=== PATIENT | female | born 1985 | race Caucasian/White ===

== ENCOUNTER 2017-07-27 12:58 | Day surgery (SDC) | payer MEDICAID ==
[~2017-07-27] VITALS: Ht 167.6 cm; Wt 96.2 kg
[~2017-07-27 12:58] MED LIST: DCS100C PO; FERR-57 PO; FLX20C; IBP800T PO; PREN1TAB4 PO; percocet
--- OUTSIDE RECORDS SUMMARY | 2017-07-27 13:01 | XMS REPORT | Continuity of Care Document ---
Author Author Formerly [facility], 1928–1983 Ctr of [facility] Ctr [facility] Address Unknown Phone Unavailable Allergies Medications Problems Date Dx Coded Attending Type Code Diagnosis Diagnosed By 10/21/2009 DALE SEGOVIA DO 643.90 UNSPECIFIED VOMITING OF , UNSPECIFIED TO EPISODE OF CARE OR NOT APPLICABLE 10/21/2009 DALE SEGOVIA DO 654.20 PREVIOUS DELIVERY, UNSPECIFIED TO EPISODE OF CARE OR NOT APPLICABLE 10/21/2009 DALE SEGOVIA DO V23.89 SUPERVISION OF OTHER HIGH-RISK 10/21/2009 643.90 UNSPECIFIED VOMITING OF , UNSPECIFIED TO EPISODE OF CARE OR NOT APPLICABLE 10/21/2009 654.20 PREVIOUS DELIVERY, UNSPECIFIED TO EPISODE OF CARE OR NOT APPLICABLE 10/21/2009 V23.89 SUPERVISION OF OTHER HIGH-RISK 01/06/2010 DALE SEGOVIA DO V22.1 SUPERVISION OF OTHER NORMAL 01/06/2010 V22.1 SUPERVISION OF OTHER NORMAL 01/10/2010 DALE SEGOVIA DO 462 PHARYNGITIS ACUTE 01/10/2010 462 PHARYNGITIS ACUTE 10/14/2010 DALE SEGOIVA DO 729.5 foot pain (soft tissue) 10/14/2010 729.5 foot pain (soft tissue) 11/02/2010 DALE SEGOVIA DO 296.90 MOOD DISORDER 11/02/2010 DALE SEGOVIA DO 626.4 IRREGULAR MENSTRUAL CYCLE 11/02/2010 DALE SEGOVIA DO 799.22 IRRITIBILITY 11/02/2010 DALE SEGOVIA DO V25.09 CONTRACEPTIVE COUNSELING 11/02/2010 DALE SEGOVIA DO V25.49 SURVEILLANCE OF OTHER CONTRACEPTIVE METHOD 11/02/2010 DALE SEGOVIA DO V72.31 HEAT CURER EXAM, ROUTINE 11/02/2010 DALE SEGOVIA DO V74.5 STD SCREEN 11/02/2010 296.90 MOOD DISORDER 11/02/2010 626.4 IRREGULAR MENSTRUAL CYCLE 11/02/2010 799.22 IRRITIBILITY 11/02/2010 V25.09 CONTRACEPTIVE COUNSELING 11/02/2010 V25.49 SURVEILLANCE OF OTHER CONTRACEPTIVE METHOD 11/02/2010 V72.31 HEAT CURER EXAM, ROUTINE 11/02/2010 V74.5 STD SCREEN Procedures Results Encounters ACCT No. Visit Date/Time Discharge Status Pt. Type Provider Facility Loc./Unit Complaint [id number] 02/28/2012 16:24:00 02/28/2012 23: 59:59 [place] [id number] 02/28/2012 16:24:00 02/28/2012 23: 59:59 CLS Outpatient
[2017-07-27] MEDS ORDERED: D5 LR IV SOLUTION 1,000 ML IV SCH (13:08)
[2017-07-27] MEDS ORDERED: CIPR-225 PO (13:12)
[2017-07-27] MEDS ORDERED: OXYC-202 PO (13:12)
[2017-07-27] MEDS ORDERED: METR500T PO (13:12)
--- NOTE | 2017-07-27 13:13 | Discharge Instructions ---
Discharge Instructions Discharge Medications New, Converted or Re-Newed RX: RX on Chart Patient Instructions Patient Instructions: aas directed Return to The Hospital For: as directed Activity & Diet Discharge Diet: No Restrictions Activity as Tolerated: No Orders-Post D/C & Referrals Follow Up Appt: Call to make follow up appt. for patient in 2 weeks. Activity: Rest for 24 hours, than as tolerated. Please call in RX to patient pharmacy. Diet: As tolerated-Clear Liquids only if nauseated. May shower or tub bathe as desired. No driving for 24 hours, no alcoholic beverages for 24 hours, and nothing per vagina (no tampons, douching, or intercourse) for 2 weeks. Patient to return to the clinic as soon as possible for: Temperature greater than 101F, Severe Pain, Foul discharge from incision or vagina, Excessive Bleeding (more than a period). ELMA MENA MD Jul 27, 2017 1:13 pm
[2017-07-27] MEDS ORDERED: MEPERIDINE (DEMEROL) INJ 100 MG/ML IM ONE (13:15)
[2017-07-27] MEDS ORDERED: ONDANSETRON 4 MG/2 ML (SDV) Z0FRAN IVP PRN ×2 (13:15→17:30)
[2017-07-27] MEDS ORDERED: KETOROLAC 30 MG/ML VIAL IVP ONE (13:15)
[2017-07-27] MEDS ORDERED: PROMETHAZINE INJ 25 MG/ML (PHENERGAN) AMP IM ONE (13:15)
[2017-07-27] MEDS ORDERED: SCOPOLAMINE 1.5 MG (TRANSDERM-SCOP) PATCH ONE (13:51)
[2017-07-27] MEDS ORDERED: FAMOTIDINE 20MG/2ML IV (PEPCID) ONE (13:51)
[2017-07-27] MEDS ORDERED: SCOPOLAMINE 1.5 MG (TRANSDERM-SCOP) PATCH TOP ONE (14:00)
[2017-07-27] MEDS ORDERED: metroNIDAZOLE 500MG/100ML IVPB 100 ML IV ONE (14:00)
[2017-07-27] MEDS ORDERED: ONDANSETRON 4 MG/2 ML (SDV) Z0FRAN IV ONE (14:00)
[2017-07-27] MEDS ORDERED: FAMOTIDINE 20MG/2ML IV (PEPCID) IV ONE (14:00)
[2017-07-27] MEDS ORDERED: LEVOFLOXACIN 500 MG/100 ML IV 100 ML IV ONE (14:00)
[2017-07-27] MEDS: LACTATED RINGERS 1,000 ML IV PRN ×2 (14:00→18:19)
[2017-07-27] MEDS ORDERED: MIDAZOLAM 2 MG/2 ML (VERSED) VIAL ONE (14:24)
[2017-07-27] MEDS ORDERED: SEVOFLURANE (ULTANE) 15 ML INHAL SOLN ONE (14:24)
[2017-07-27] MEDS ORDERED: proPOfol 200 MG/20 ML (DIPRIVAN) VIAL IV ONE (14:24)
[2017-07-27] MEDS ORDERED: DEXAMETHASONE 10 MG/ML (DECADRON) 1 ML VIAL ONE (14:24)
[2017-07-27] MEDS ORDERED: LIDOCAINE PF 2% 5 ML (XYLOCAINE) VIAL ONE (14:24)
[2017-07-27] MEDS ORDERED: fentaNYL INJECTION 100 MCG/2 ML AMP ONE (14:24)
[2017-07-27 14:25] LABS: BASOPHILS % (AUTO) 0 % (0-10); EOSINOPHILS # (AUTO) 0.3 10^3/uL (0.0-0.3); EOSINOPHILS % (AUTO) 4 % (0-10); LYMPHOCYTES # (AUTO) 2.8 X 10^3 (1.0-4.0); LYMPHOCYTES % (AUTO) 29 % (12-44); MEAN CORPUSCULAR HEMOGLOBIN 31 PG (25-34); MEAN CORPUSCULAR HGB CONC 34 G/DL (32-36); MEAN CORPUSCULAR VOLUME 92 FL (80-99); MEAN PLATELET VOLUME 9.6 FL (7.4-10.4); MONOCYTES # (AUTO) 0.7 X 10^3 (0.0-1.0); MONOCYTES % (AUTO) 7 % (0-12); NEUTROPHILS # (AUTO) 5.7 X 10^3 (1.8-7.8); NEUTROPHILS % (AUTO) 60 % (42-75); PLATELET COUNT 318 10^3/uL (130-400); RED BLOOD COUNT 3.97 10^6/uL (4.35-5.85); RED CELL DISTRIBUTION WIDTH 14.3 % (10.0-14.5); WHITE BLOOD COUNT 9.4 10^3/uL (4.3-11.0)
[2017-07-27 14:46] VITALS: BP 90/61
[2017-07-27] MEDS ORDERED: MEPERIDINE (DEMEROL) INJ 50 MG/ML IVP PRN (17:30)
[2017-07-27] MEDS ORDERED: KETOROLAC 30 MG/ML VIAL ONE (17:54)
[2017-07-27] MEDS: morphine INJ 10 MG/ML 1ML (SYR OR VIAL) IVP PRN ×2 (18:13→18:29)
[2017-07-27] MEDS ORDERED: LACTATED RINGERS 1,000 ML IV ONE (18:17)
[2017-07-27 19:30] VITALS: BP 102/63
[2017-07-27 21:00] VITALS: BP 99/60
[2017-07-27] MEDS: oxyCODONE/APAP 10/325MG (PERCOCET 10) TABLET PO PRN (21:26)
[2017-07-28] MEDS ORDERED: IBUPROFEN 600 MG (MOTRIN) TAB PO SCH
[2017-07-28] MEDS ORDERED: IBUPROFEN 800 MG (MOTRIN) TAB PO ONE (00:03)
[2017-07-28] MEDS: IBUPROFEN 800 MG (MOTRIN) TAB PO SCH ×3 (00:15→13:14)
[2017-07-28 00:16] VITALS: BP 94/58
--- NOTE | 2017-07-28 00:44 | OPERATIVE REPORT ---
DATE OF SERVICE: 07/27/2017 PREOPERATIVE DIAGNOSIS: Missed /intrauterine demise. POSTOPERATIVE DIAGNOSIS: Missed /intrauterine demise. OPERATIVE PROCEDURE: D and C. OPERATIVE DESCRIPTION: With the patient in the supine position, under satisfactory general anesthesia, she was repositioned in dorsal lithotomy position in candycane stirrups and prepped and draped in the usual fashion for vaginal surgery. The urinary bladder was emptied with a straight catheter. A weighted speculum placed in the posterior fornix of the vagina. Cervix was exposed and grasped anteriorly with single tooth tenaculum. The uterus was sounded to 14 cm with uterine sound. The cervix was then serially dilated with Jason dilators to a #20 Jason and then a #19 Hegar dilator, was the final step in dilation. A culture from the endometrial cavity was obtained for aerobes and anaerobes and sent to the lab labeled appropriately. A #10 curved sucking curet was then introduced and endometrial cavity curettaged with removal of large amount of trophoblastic and decidual appearing tissue, blood, clot, amniotic fluid and debris. The endometrial cavity was sharply curettaged in all 4 quadrants to good uterine cry. Then, the suction curet was reintroduced and all blood, clot and debris evacuated from the uterus. The curet was removed as was the tenaculum. There was some bleeding from the puncture sites that was controlled with application of silver nitrate stick. On completion of the procedure, estimated blood loss was 400 mL. Sponge and needle counts were correct. The patient was uneventfully awakened from her general anesthesia and transferred to recovery room in stable condition with plans for discharge home PAR. Job ID: [id number] DocumentID: [id number] Dictated Date: 07/27/2017 17:51:43 Body Technician/Painter Date: 07/28/2017 00:43:44 Dictated By: ELMA MENA MD
[2017-07-28 04:30] VITALS: BP 97/67
[2017-07-28] MEDS: oxyCODONE/APAP 10/325MG (PERCOCET 10) TABLET PO PRN ×2 (06:24→13:14)
--- NOTE | 2017-07-28 07:07 | Progress Note-Standard ---
Standard Progress Note Progress Notes/Assess & Plan Date Seen by Provider: Jul 28, 2017 Time Seen by Provider: 07:05 Progress/Assessment & Plan patient this morning is without complaint except some mild cramping and some spotting. She is ambulating voiding and tolerating by mouth. Vital Signs Date Time Temp Pulse Resp B/P (MAP) Pulse Ox O2 Delivery O2 Flow Rate FiO2 07/28/17 04:30 97.6 73 18 97/67 (77) 99 Room Air 07/28/17 00:16 96.4 65 18 94/58 (70) 95 Room Air 07/27/17 21:00 96.6 88 18 99/60 (73) 98 Room Air 07/27/17 19:30 97.1 85 16 102/63 (76) 97 Room Air 07/27/17 14:46 98.9 84 16 90/61 (71) 96 Room Air I & O 07/28/17 07:00 Intake Total 1200 ml Output Total 400 ml Balance 800 ml Laboratory Tests Test 07/27/17 13:40 Range/Units White Blood Count 9.4 4.3-11.0 10^3/uL Red Blood Count 3.97 L 4.35-5.85 10^6/uL Hemoglobin 12.3 11.5-16.0 G/DL Hematocrit 36 35-52 % Mean Corpuscular Volume 92 80-99 FL Mean Corpuscular Hemoglobin 31 25-34 PG Mean Corpuscular Hemoglobin Concent 34 32-36 G/DL Red Cell Distribution Width 14.3 10.0-14.5 % Platelet Count 318 130-400 10^3/uL Mean Platelet Volume 9.6 7.4-10.4 FL Neutrophils (%) (Auto) 60 42-75 % Lymphocytes (%) (Auto) 29 12-44 % Monocytes (%) (Auto) 7 0-12 % Eosinophils (%) (Auto) 4 0-10 % Basophils (%) (Auto) 0 0-10 % Neutrophils # (Auto) 5.7 1.8-7.8 X 10^3 Lymphocytes # (Auto) 2.8 1.0-4.0 X 10^3 Monocytes # (Auto) 0.7 0.0-1.0 X 10^3 Eosinophils # (Auto) 0.3 0.0-0.3 10^3/uL Basophils # (Auto) 0.0 0.0-0.1 10^3/uL Signs are stable. Patient is afebrile. Hemoglobin and white blood cell count normal. The abdomen is benign. Bowel sounds are present. Surgeon show no clubbing cyanosis. There is no Homans sign. Assessment and plan postoperative day number 1 status post D&C for IUFD. Patient doing well be discharged home with follow-up in clinic Final Diagnosis IUFD ELMA MENA MD Jul 28, 2017 7:07 am
[2017-07-28 08:00] VITALS: BP 97/53
--- NOTE | 2017-07-28 13:20 | Anesthesia-General Post-Op ---
General Patient Condition Mental Status/LOC: Same as Preop Cardiovascular: Satisfactory Nausea/Vomiting: Absent Respiratory: Satisfactory Pain: Controlled Complications: Absent Post Op Complications Complications None Follow Up Care/Instructions Patient Instructions None needed. Anesthesia/Patient Condition Patient Condition Patient is doing well, no complaints, stable vital signs, no apparent adverse anesthesia problems. ALLIE PALACIOS DO Jul 28, 2017 13:20
[2017-07-28 14:57] VITALS: BP 97/53
[2017-07-30] MEDS ORDERED: PATCH REMOVAL TP SCH (13:59)
== END 2017-07-28 14:50 | disposition home or self-care (01) ==
LOC: SDC 12:58 → LDRP 19:00 → SDC 07-28 14:50
PROVIDERS: ATTEND Obstetrics & Gynecology
DX: O02.1 Missed abortion (principal); F17.210 Nicotine dependence, cigarettes, uncomplicated; E66.9 Obesity, unspecified; Z68.34 Body mass index [BMI] 34.0-34.9, adult
CPT/HCPCS: 36415; 85025; 86850; 86900; 86901; 87070; 87075; 87081; 87101; 87116; 87205

== ENCOUNTER 2017-08-05 00:18 | Emergency (ER) | payer MEDICAID ==
[~2017-08-05] VITALS: Ht 170.2 cm; Wt 96.2 kg
[~2017-08-05 00:18] MED LIST changes: +CIPR-225 PO; +METR500T PO; +OXYC-202 PO
--- OUTSIDE RECORDS SUMMARY | 2017-08-05 00:24 | XMS REPORT | Continuity of Care Document ---
Author Author [facility] Ctr of [facility] Ctr of [facility] Address Unknown Phone Unavailable Allergies There is no data. Medications There is no data. Problems Date Dx Coded Attending Type Code [...] ACUTE 01/10/2010 462 PHARYNGITIS ACUTE 10/14/2010 DALE SEGOVIA DO 729.5 foot pain (soft tissue) 10/14/2010 729.5 foot pain ( soft tissue) 11/02/2010 DALE SEGOVIA DO 296.90 MOOD DISORDER 11/02/2010 DALE SEGOVIA DO 626.4 IRREGULAR MENSTRUAL CYCLE 11/02/2010 DALE SEGOVIA DO 799.22 IRRITIBILITY 11/02/2010 DALE SEGOVIA DO V25.09 CONTRACEPTIVE COUNSELING 11/02/2010 DALE SEGOVIA DO V25.49 SURVEILLANCE OF OTHER CONTRACEPTIVE METHOD 11/02/2010 DALE SEGOVIA DO V72.31 BILLET SHEARER EXAM, ROUTINE 11/02/2010 DALE SEGOVIA DO V74.5 STD SCREEN 11/02/2010 296.90 MOOD DISORDER 11/02/2010 626.4 IRREGULAR MENSTRUAL CYCLE 11/02/2010 799.22 IRRITIBILITY 11/02/2010 V25.09 CONTRACEPTIVE COUNSELING 11/02/2010 V25.49 SURVEILLANCE OF OTHER CONTRACEPTIVE METHOD 11/02/2010 V72.31 BILLET SHEARER EXAM, ROUTINE 11/02/2010 V74.5 STD SCREEN Procedures There is no data. Results There is no data. Encounters ACCT No. Visit Date/Time Discharge Status Pt. Type Provider Facility Loc./Unit Complaint [id number] 02/28/2012 16:24:00 02/28/2012 23:59:59 [place] [id number] 02/28/2012 16:24:00 02/28/2012 23:59:59 CLS Outpatient
[2017-08-05] MEDS ORDERED: NS IV 1000 ML 1,000 ML IV ONE (01:04)
[2017-08-05 01:11] LABS: BASOPHILS % (AUTO) 0 % (0-10); EOSINOPHILS # (AUTO) 0.4 10^3/uL (0.0-0.3); EOSINOPHILS % (AUTO) 4 % (0-10); LYMPHOCYTES % (AUTO) 27 % (12-44); MEAN CORPUSCULAR HEMOGLOBIN 31 PG (25-34); MEAN CORPUSCULAR HGB CONC 34 G/DL (32-36); MEAN CORPUSCULAR VOLUME 93 FL (80-99); MEAN PLATELET VOLUME 9.2 FL (7.4-10.4); MONOCYTES # (AUTO) 0.9 X 10^3 (0.0-1.0); MONOCYTES % (AUTO) 8 % (0-12); NEUTROPHILS # (AUTO) 6.8 X 10^3 (1.8-7.8); NEUTROPHILS % (AUTO) 61 % (42-75); PLATELET COUNT 446 10^3/uL (130-400); RED BLOOD COUNT 3.55 10^6/uL (4.35-5.85); RED CELL DISTRIBUTION WIDTH 14.4 % (10.0-14.5); WHITE BLOOD COUNT 11.2 10^3/uL (4.3-11.0)
[2017-08-05 01:23] LABS: INR 0.9 (0.8-1.4); PROTHROMBIN TIME PATIENT 12.3 SEC (12.2-14.7)
[2017-08-05 01:26] LABS: ALANINE AMINOTRANSFERASE 70 U/L (0-55); ALBUMIN 4.3 GM/DL (3.2-4.5); ANION GAP 12 MMOL/L (5-14); ASPARTATE AMINO TRANSFERASE 33 U/L (5-34); BILIRUBIN,TOTAL 0.7 MG/DL (0.1-1.0); BLOOD UREA NITROGEN 23 MG/DL (7-18); BUN/CREATININE RATIO 32; CALCIUM 9.5 MG/DL (8.5-10.1); CARBON DIOXIDE 21 MMOL/L (21-32); CHLORIDE 106 MMOL/L (98-107); CREATININE SERUM 0.72 MG/DL (0.60-1.30); GFR ESTIMATED > 60; GLUCOSE 92 MG/DL (70-105); SODIUM 139 MMOL/L (135-145)
--- NOTE | 2017-08-05 02:13 | ED GU-Female ---
General Chief Complaint: -Female Stated Complaint: 9 DAYS POST D AND C BLEEDING FEVER Nursing Triage Note: pt reports she had d&c by dr ramey last Sunday07/27/[address] ramey for infection with miscarriage. reports spotting since that time. cramping et fever worsening since Sunday. persistent worsening vag bleeding. Nursing Sepsis Screen: Possible Sepsis Risk Source: patient History of Present Illness Time seen by provider: 01:04 Initial Comments PT STATES SHE HAD A D&C ON 07/27 FOR MISCARRIAGE--DR. RAMEY LMP 06/19/17 PT IS AB1 PT HAS HAD FEVER OF 99-100 SINCE DISMISSED FROM HOSPITAL ON 07/28/17 HAS BEEN ON CIPRO AND FLAGYL FOR POSSIBLE INFECTION PT CONTINUES TO HAVE FEVER, AND ALSO BAD ODOR PT HAD NORMAL AMOUNT OF BLEEDING UNTIL 3 DAYS AGO, SINCE THEN HAS HAD MUCH INCREASE IN PAIN AND BLEEDING HAVING SEVERE CRAMPING AND LOWER ABDOMINAL PRESSURE, AND BLEEDING WITH CLOTS HAS BEEN SEVERE --HAS BEEN USING CHILD'S DIAPERS INSTEAD OF PADS, DUE TO THE AMOUNT OF BLEEDING--HAS USED APPROXIMATELY 10 DIAPERS TODAY TOOK A PAIN PILL JUST PRIOR TO ARRIVAL AND PAIN IS MUCH BETTER, HAS NOT TAKEN ANYTHING ELSE FOR PAIN TODAY Allergies and Home Medications Allergies Coded Allergies: No Known Drug Allergies (Verified , 07/01/08) Home Medications Ciprofloxacin HCl 500 Mg Tablet, 500 MG PO BID, #14 Prescribed by: ELMA DEE on 07/27/17 1312 Metronidazole 500 Mg Tablet, 500 MG PO BID, #14 Prescribed by: ELMA DEE on 07/27/17 1312 Oxycodone HCl/Acetaminophen 1 Each Tablet, 1-2 TAB PO Q4H PRN for PAIN, #60 Ref 0 Prescribed by: ELMA DEE on 07/27/17 1312 Constitutional: see HPI, fever Respiratory: no symptoms reported Cardiovascular: no symptoms reported Gastrointestinal: see HPI, abdominal pain, No nausea, No vomiting Genitourinary: see HPI LMP: Jun 19, 2017 Musculoskeletal: no symptoms reported Skin: no symptoms reported Psychiatric/Neurological: No Symptoms Reported Endocrine: No Symptoms Reported Hematologic/Lymphatic: See HPI Past Xtwiwry-Wmgvbo-Ijermi Hx Patient Social History Alcohol Use: Occasionally Uses Recreational Drug Use: Yes (HAS BEEN THROUGH [place] FOR METH) Drug of Choice: METH Smoking Status: Current Everyday Smoker (1 PPD) Type Used: Cigarettes Recent Foreign Travel: No Contact w/Someone Who Travel: No Recent Infectious Disease Expo: No Recent Hopitalizations: Yes (D&C 07/27/17) Surgeries History of Surgeries: Yes (D&C 07/27/17; X 2; LEEP) Surgeries: Adenoidectomy, Section, Gallbladder, Tonsillectomy Respiratory History of Respiratory Disorde: No Cardiovascular History of Cardiac Disorders: No Neurological History of Neurological Disord: No Reproductive System : No Hx : 5 Hx Para: 4 Hx Reproductive Disorders: Yes (CERVICAL DYSPLASIA--S/P LEEP) Sexually Transmitted Disease: No HIV/AIDS: No Female Reproductive Disorders: Denies Genitourinary History of Genitourinary Disor: No Gastrointestinal History of Gastrointestinal Di: No Musculoskeletal History of Musculoskeletal Dis: No Endocrine History of Endocrine Disorders: No HEENT History of HEENT Disorders: No Cancer History of Cancer: No Psychosocial History of Psychiatric Problem: Yes Behavioral Health Disorders: Anxiety Integumentary History of Skin or Integumenta: No Blood Transfusions History of Blood Disorders: No Physical Exam Vital Signs Vital Sign - Last 12Hours 08/05/17 00:45 Temp 97.2 Pulse 109 Resp 18 B/P (MAP) 108/73 (85) Capillary Refill : Less Than 3 Seconds General Appearance: WD/WN, no apparent distress, other (CONSTANT MOVEMENTS, TEARFUL AT TIMES.) Neck: normal inspection Cardiovascular: regular rate, rhythm, no murmur Respiratory: normal breath sounds, no respiratory distress, no accessory muscle use Gastrointestinal: normal bowel sounds, soft, no organomegaly, no pulsatile mass , tenderness (DIFFUSE LOWER ABDOMINAL TENDERNESS) Back: no CVA tenderness Extremities: normal inspection Neurologic/Psychiatric: driver education instructor II-XII nml as tested, no motor/sensory deficits, alert, oriented x 3 Skin: normal color, warm/dry, other (MULTIPLE SORES/SCABS/SCARS TO FACE) Focused Exam Evaluation Lactate Level Laboratory Tests 08/05/17 01:10: Lactic Acid Level 0.56 Lactic Acid Level Laboratory Tests Test 08/05/17 01:10 Lactic Acid Level 0.56 MMOL/L (0.50-2.00) Progress/Results/Core Measures Suspected Sepsis Recent Fever Within 48 Hours: Yes Infection Criteria Present: Suspected New Infection New/Unexplained Altered Menta: No Sepsis Screen: Possible Sepsis Risk Sepsis Diagnosis: SIRS Temperature:97.2 Pulse: 109 Respiratory Rate: 18 Laboratory Tests 08/05/17 01:02: White Blood Count 11.2H Blood Pressure 108 /73 Mean: 85 Laboratory Tests 08/05/17 01:10: Lactic Acid Level 0.56 Laboratory Tests 08/05/17 01:02: Creatinine 0.72, INR Comment 0.9, Platelet Count 446H, Total Bilirubin 0.7 Results/Orders Lab Results Laboratory Tests Test 08/05/17 01:02 08/05/17 01:10 Range/Units White Blood Count 11.2 H 4.3-11.0 10^3/uL Red Blood Count 3.55 L 4.35-5.85 10^6/uL Hemoglobin 11.1 L 11.5-16.0 G/DL Hematocrit 33 L 35-52 % Mean Corpuscular Volume 93 80-99 FL Mean Corpuscular Hemoglobin 31 25-34 PG Mean Corpuscular Hemoglobin Concent 34 32-36 G/DL Red Cell Distribution Width 14.4 10.0-14.5 % Platelet Count 446 H 130-400 10^3/uL Mean Platelet Volume 9.2 7.4-10.4 FL Neutrophils (%) (Auto) 61 42-75 % Lymphocytes (%) (Auto) 27 12-44 % Monocytes (%) (Auto) 8 0-12 % Eosinophils (%) (Auto) 4 0-10 % Basophils (%) (Auto) 0 0-10 % Neutrophils # (Auto) 6.8 1.8-7.8 X 10^3 Lymphocytes # (Auto) 3.0 1.0-4.0 X 10^3 Monocytes # (Auto) 0.9 0.0-1.0 X 10^3 Eosinophils # (Auto) 0.4 H 0.0-0.3 10^3/uL Basophils # (Auto) 0.0 0.0-0.1 10^3/uL Prothrombin Time 12.3 12.2-14.7 SEC INR Comment 0.9 0.8-1.4 Activated Partial Thromboplast Time 20 L 24-35 SEC Sodium Level 139 135-145 MMOL/L Potassium Level 4.0 3.6-5.0 MMOL/L Chloride Level 106 98-107 MMOL/L Carbon Dioxide Level 21 21-32 MMOL/L Anion Gap 12 5-14 MMOL/L Blood Urea Nitrogen 23 H 7-18 MG/DL Creatinine 0.72 0.60-1.30 MG/DL Estimat Glomerular Filtration Rate > 60 BUN/Creatinine Ratio 32 Glucose Level 92 70-105 MG/DL Calcium Level 9.5 8.5-10.1 MG/DL Total Bilirubin 0.7 0.1-1.0 MG/DL Aspartate Amino Transf (AST/SGOT) 33 5-34 U/L Alanine Aminotransferase (ALT/SGPT) 70 H 0-55 U/L Alkaline Phosphatase 90 40-136 U/L Total Protein 8.0 6.4-8.2 GM/DL Albumin 4.3 3.2-4.5 GM/DL Lactic Acid Level 0.56 0.50-2.00 MMOL/L My Orders Orders - ALOK BABCOCK DO Saline Lock/Iv-Start (08/05/17 01:04) Cbc With Automated Diff (08/05/17 01:04) Comprehensive Metabolic Panel (08/05/17 01:04) Lactic Acid Analyzer (08/05/17 01:04) Protime With Inr (08/05/17 01:04) Partial Thromboplastin Time (08/05/17 01:04) Blood Culture (08/05/17 01:04) Saline Lock/Iv-Start (08/05/17 01:04) Ns Iv 1000 Ml (Sodium Chloride 0.9%) (08/05/17 01:04) Us Non Ob Transvaginal [id number] (08/05/17 01:06) Drug Screen Stat (Urine) (08/05/17 02:11) Ceftriaxone Injection (Rocephin Injectio (08/05/17 02:45) Azithromycin Tablet (Zithromax Tablet) (08/05/17 02:45) Medications Given in ED Current Medications Medications Dose Ordered Sig/Sawyer Route Start Time Stop Time Status Last Admin Dose Admin Azithromycin 1,000 mg ONCE ONCE PO 08/05/17 02:45 08/05/17 03:03 DC 08/05/17 03:23 1,000 MG Ceftriaxone Sodium 1000 mg/ Sodium Chloride 50 ml @ 100 mls/hr ONCE ONCE IV 08/05/17 02:45 08/05/17 03:14 DC 08/05/17 03:23 100 MLS/HR Sodium Chloride 1,000 ml @ 0 mls/hr Q0M ONCE IV 08/05/17 01:04 08/05/17 01:06 DC 08/05/17 01:43 0 MLS/HR Vital Signs/I&O Vital Sign - Last 12Hours 08/05/17 00:45 Temp 97.2 Pulse 109 Resp 18 B/P (MAP) 108/73 (85) Capillary Refill : Less Than 3 Seconds Blood Pressure Mean: 85 Progress Note : Progress Note NO SIGNIFICANT BLEEDING DURING ER STAY--DID NOT SATURATE ANY PADS DURING ER STAY PAIN HAS EASED AT TIME OF DISMISSAL Diagnostic Imaging Comments ULTRASOUND--HETEROGENEOUSLY THICKENED ENDOMETRIUM WITH NO INTERNAL BLOOD FLOW-- UP TO 1.8 CM, POSSIBLY SECONDARY TO BLOOD CLOTS. NO UTERINE MASSES, NO FREE FLUID. NO ADNEXAL MASSES BUT OVARIES NOT SEEN. PER [facility] VIA FAX @ [id number] Reviewed: Reviewed by Me Departure Impression Impression: Primary Impression: POST D&C BLEEDING Additional Impression: POSSIBLE ENDOMETRITIS Disposition: HOME, SELF-CARE Condition: Stable Departure-Patient Inst. Referrals: ELMA RAMEY MD (PCP) Primary Care Physician Patient Instructions: Bleeding After Surgery Add. Discharge Instructions: CONTINUE CIPRO AND FLAGYL PRESCRIBED CONTINUE YOUR PAIN MEDICATION PRESCRIBED LOTS OF CLEAR LIQUIDS FOLLOW UP WITH YOUR DR ON SUNDAY FOR FURTHER CARE RETURN TO ER IF WORSE All discharge instructions reviewed with patient and/or family. Voiced understanding. ALOK BABCOCK DO Aug 05, 2017 02:13
[2017-08-05] MEDS ORDERED: cefTRIAXone INJECTION 1,000 MG in NS (IVPB) 50 ML IV ONE (02:45)
[2017-08-05] MEDS ORDERED: AZITHROMYCIN 250 MG TAB (ZITHROMAX) PO ONE (02:45)
[2017-08-05 04:14] VITALS: BP 140/67
--- NOTE | 2017-08-05 06:53 | Diagnostic Imaging Report ---
INDICATION: 9 days status post D&C. Heavy bleeding. The uterus measures 10 x 7 x 6 cm. The endometrium measures 18 mm. The ovaries are not identified. There is some thickening of the endometrium with some fluid in the uterine cavity which is likely blood. A focal mass or hematoma is not seen. The myometrium appears normal. The ovaries are not identified but there is no adnexal mass or free fluid. IMPRESSION: Thickened endometrium with some fluid in the uterine cavity. No other abnormality is seen. Dictated by: Dictated on workstation # [id number]
== END 2017-08-05 04:08 | disposition home or self-care (01) ==
LOC: EDUNIT# 00:18 → ER 00:20
DX: O99.89 Other specified diseases and conditions complicating pregnancy, childbirth and the puerperium (principal); N99.821 Postprocedural hemorrhage of a genitourinary system organ or structure following other procedure; O99.340 Other mental disorders complicating pregnancy, unspecified trimester; F41.9 Anxiety disorder, unspecified; O99.330 Smoking (tobacco) complicating pregnancy, unspecified trimester; F17.210 Nicotine dependence, cigarettes, uncomplicated; Z90.89 Acquired absence of other organs
CPT/HCPCS: 36415; 76830; 80053; 83605; 85025; 85610; 85730; 87040